=== PATIENT | female | born 1985 | race Caucasian/White ===

== ENCOUNTER 2025-05-02 22:11 | Emergency (ER) | payer OTHER, SELFPAY ==
--- NOTE | 2025-05-02 22:17 | ECG_ITS ---
Test Reason : OD Blood Pressure : */* mmHG Vent. Rate : 97 BPM Atrial Rate : 97 BPM P-R Int : 152 ms QRS Dur : 82 ms QT Int : 368 ms P-R-T Axes : 71 67 68 degrees QTcB Int : 467 ms Normal sinus rhythm Normal ECG No previous ECGs available Referred By: Karen Urrutia Electronically Signed By: NANCY GROSS
[2025-05-02] MEDS: diazePAM 10 MG/2 ML CARTRIDGE IVPUSH (22:30)
[2025-05-02] MEDS: Lactated Ringers 1,000 ML 999 ML IV (22:33)
[2025-05-02 22:34] VITALS: BP 127/80; PULSE 82; RESP 24; TEMP 35.9; O2SAT 97; BMI 24.4
[2025-05-02 22:57] LABS: MANUAL DIFF FLAG NO
[2025-05-02 22:58] LABS: Hematocrit 44.1 % (37.0-47.0); Hemoglobin 15.6 g/dl (12.0-16.0); Imm Gran Abs Auto 0.05 X10*3/uL (0.00-0.03); Imm Gran Pct Auto 0.5 % (0.0-0.4); Lymphocytes Absolute Auto 3.5 X10*3/uL (1.2-4.9); Mean Corpuscular HGB Conc 35.4 g/dl (31.0-35.0); Mean Corpuscular Hemoglobin 31.0 pg (27.0-33.0); Mean Corpuscular Volume 87.5 fL (80.0-98.0); NRBC Abs Auto 0.000 X10*3/uL (0.0-0.012); NRBC Pct Auto 0.0 /100WBC (0.0-0.2); Platelet Count 302 X10*3/uL (160-400); Red Blood Count 5.04 X10*6/uL (4.20-5.50); White Blood Count 11.1 X10*3/uL (4.8-10.8)
[2025-05-02 23:17] LABS: Acetaminophen LAB < 3 mcg/mL (<30); Salicylate < 5.0 mg/dL (15-30)
[2025-05-02 23:23] LABS: VBG HCO3 20 mmol/L (22-26); VBG O2 % Saturation 53.0 %
[2025-05-02 23:25] LABS: Venous Blood Gas Refer to POC result
[2025-05-02 23:28] LABS: Alanine Aminotransferase 27 U/L (0-31); Albumin Level 5.9 g/dL (3.5-5.0); Alkaline Phosphatase 48 U/L (39-117); Anion Gap 21 (12-20); Aspartate Amino Transferase 29 U/L (5-31); Blood Urea Nitrogen 17 mg/dL (9-16); Calcium 11.2 mg/dL (8.4-10.2); Carbon Dioxide 18 mmol/L (22-29); Chloride 103 mmol/L (96-108); Creatinine Clr Calc Pharmacy 80.6; Estimated Glomerular Filt Rate > 60; Potassium 3.2 mmol/L (3.3-5.1); Sodium 139 mmol/L (135-145); Total Protein 10.1 g/dL (6.5-8.0)
--- NOTE | 2025-05-03 00:25 | ED.OVERDOSE ---
HPI - Overdose General Chief Complaint: Overdose Stated Complaint: pain Time Seen by Provider: 05/02/25 22:15 Source: patient, family, RN notes reviewed and old records reviewed Mode of arrival: wheelchair Limitations: altered mental status History of Present Illness ED Provider: Dr. Karen Urrutia HPI Narrative: 39-year-old female with unclear past medical history presenting with apparent opioid overdose. Patient was in the parking lot in her own private vehicle and eventually was brought into the hospital. Reportedly overdosed on something and was given 4 doses of intranasal Narcan by a family member. She has explosive diarrhea and is unable to answer any questions at this time. No further information is able to be obtained at this time. Related Data Allergies Allergy/AdvReac Type Severity Reaction Status Date / Time Unable to Assess Allergy Verified 05/02/25 22:39 Review of Systems Review of Systems: Yes Unobtainable due to mental status PMFSH Social History Social History Advance Directives: No Advance Directives Information Provided: No Physical Exam Exam: Exam: GENERAL: Agitated, uncontrolled movements, writhing around on the stretcher, moaning in discomfort, responding to painful stimuli. SKIN: Normal skin color for ethnicity, diaphoretic, intact. HEENT: Normocephalic, atraumatic, no stridor, posterior oropharynx nonerythematous, poor [place] dentition, moist mucous membranes, EOMI. NECK: Soft, supple, full ROM, midline structures nontender, no step-offs, no deformities, no lymphadenopathy. CHEST: Heart regular tachycardia, no murmurs, symmetric chest rise and fall, no crepitus. PULMONARY: Clear to auscultation bilaterally, tachypneic, frequently sneezes, no wheezes/rhales/rhonchi. ABDOMINAL: Soft, nondistended, diffusely tender to palpation with voluntary guarding, hyperactive sounds in all quadrants. : Deferred. MUSCULOSKELETAL: Normal tone, full range of motion, no deformities, no peripheral edema. NEURO: Agitated, equal strength in upper and lower extremities, responds to painful stimuli, mumbles incomprehensible speech, no focal neurologic deficits. PSYCHIATRIC: Agitated, garbled speech, poor eye contact and psychomotor agitation. Vital Signs: Vital Signs: Last Vital Signs Temp 98.6 F 05/03/25 10:00 Pulse 50 05/03/25 10:00 Resp 16 05/03/25 10:00 BP 127/85 05/03/25 10:00 Pulse Ox 100 05/03/25 10:00 O2 Del Method Room Air 05/03/25 10:00 BMI result Body Mass Index 24.4 Course Course Course Narrative: 1:32 AM 05/03/2025 (Dr. Karen Urrutia, D.O.) Time: 07:32 Date: 05/03/25 Provider: Karen Urrutia, DO Patient in physician observation for psychiatric evaluation.? No acute events reported overnight. No current complaints. VS stable.? Patient is pending CARE team evaluation. Will continue to monitor. Reevaluation(s) Reevaluation #1: 7:01 AM 05/03/2025 (Dr. Murphy Brandon): Awaiting for the addiction team evaluation. recieved multiple medications after having withdrawals due to has been administering naloxone in the vehicle at a parking lot. Time: 07:01 Reevaluation #2: 1:40 PM 05/03/2025 (Dr. Murphy Brandon): I spoke to patient along with organ recovery coordinator, she states that her methadone dose is too high and every time she takes it she goes out', she goes to be [facility] in [place], she is not interested in to switching over to Suboxone, not interested in recovery, denies any other drug use, with that said she is alert oriented otherwise asymptomatic we will be discharging. Medications Administered Discontinued Medications Generic Name Dose Route Start Last Admin Trade Name Alexandru PRN Reason Stop Dose Admin Buprenorphine HCl 8 mg 05/03/25 00:19 05/03/25 01:42 Buprenorphine Hcl 8 Mg Tab.Subl SUBLINGUAL 05/03/25 00:20 8 mg ONCE ONE Administration Diazepam 10 mg 05/02/25 22:17 05/02/25 22:30 Diazepam 10 Mg/2 Ml Cartridge IVPUSH 05/02/25 22:18 10 mg STAT STA Administration Haloperidol Lactate 5 mg 05/03/25 00:19 05/03/25 00:26 Haloperidol Lactate 5 Mg/Ml Vial IVPUSH 05/03/25 00:20 5 mg ONCE ONE Administration Lactated Ringer's 1,000 mls @ 999 mls/hr 05/02/25 22:17 05/03/25 00:45 Lr IV 05/02/25 23:17 Infused .Q1H1M ONE Infusion Ketamine HCl 60 mg 05/02/25 23:45 05/03/25 01:34 Ketamine Hcl/Ns 50 Mg/5 Ml Syringe IVPUSH 05/02/25 23:46 Not Given ONCE ONE Ondansetron HCl 4 mg 05/02/25 22:17 05/02/25 22:30 Ondansetron Hcl 4 Mg/2 Ml Vial IVPUSH 05/02/25 22:18 4 mg ONCE ONE Administration Medical Decision Making Medical Decision Making [facility] Narrative: Patient presents today with a chief complaint of altered mental status, possible overdose. Differential diagnosis for AMS is incredibly broad and includes infection, intracranial process such as hemorrhage, stroke or mass, electrolyte abnormality, hypercarbia, hypoxia, toxic encephalopathy, among many others. Broad-based workup was initiated to further evaluate the etiology of patient's symptoms based on the above exam and history. She has no signs of head trauma and reportedly overdosed prior to arrival. Clinical picture is consistent with acute opioid withdrawal. 12:27 AM 05/03/2025 (Dr. Karen Urrutia, D.O.) I spoke with the patient's spouse who tells me that she has a history of opioid use disorder and is maintained on methadone. He thought that she had been relatively well maintained on methadone and was not using other substances until today when they ?stopped at a friend's house and she came out acting off?. Ultimately he thought that she had overdosed on some kind of opiate and ended up giving her several doses of Narcan when she ?started to doze off?. At 1 point he reports that she stated ?give me another dose of Narcan?. Ultimately he gave her 4 doses. He reports that she then had explosive diarrhea in their truck. Became extremely agitated and altered. Unable to hold still. He brought her to the emergency department at that point. Admits that she had been feeling well prior to all of this. They have been out today driving around with their daughter who is also in the family room now. He denies other illicit substance use or alcohol use today. She has a remote history of overdose and that is why he carries around Narcan. Says that it has been several years since she overdose. 1:21 AM 05/03/2025 (Dr. Karen Urrutia, D.O.) patient now actively vomiting, requiring further sedation. Plan for Haldol, Suboxone 8 mg. I did order ketamine but it was not given right away. Now that she is vomiting, I will have them hold off and we will use antipsychotics instead. 7:25 AM 05/03/2025 (Dr. Karen Urrutia, D.O.) patient continues to rest comfortably, no further emesis. Now heart rate and blood pressure significantly improving. Awaiting urinalysis and urine tox screen. She will need a recovery team consult after this. I think she could benefit from buprenorphine/naloxone treatment. Signing out to oncoming provider pending recovery team consult and final disposition. Differential Diagnosis Differential Diagnoses: The differential diagnosis associated with the presentation includes (As above) Admission/Observation Consideration of admission/observation: Escalation of care including admission/observation considered Consult Healthcare Provider Management of the patient was discussed with: Behavioral Health Provider (Recovery team) Lab Data MDM Lab Attestation statement: I reviewed the patient's lab results. 05/02/25 22:42 05/02/25 22:42 Labs: Lab Results 05/02/25 05/02/25 Range/Units 22:42 23:19 WBC 11.1 H (4.8-10.8) X10*3/uL RBC 5.04 (4.20-5.50) X10*6/uL Hgb 15.6 (12.0-16.0) g/dl Hct 44.1 (37.0-47.0) % MCV 87.5 (80.0-98.0) fL MCH 31.0 (27.0-33.0) pg MCHC 35.4 H (31.0-35.0) g/dl RDW 12.6 (11.0-16.0) % Plt Count 302 (160-400) X10*3/uL MPV 11.9 (9.4-12.3) fL Immature Gran % (Auto) 0.5 H (0.0-0.4) % Neut % (Auto) 53.7 (45-73) % Lymph % (Auto) 31.8 (20-40) % Dixie % (Auto) 10.4 (2-11) % Eos % (Auto) 3.1 (0-4) % Baso % (Auto) 0.5 (0-2) % Lymph # (Auto) 3.5 (1.2-4.9) X10*3/uL Dixie # (Auto) 1.2 (0.1-1.2) X10*3/uL Eos # (Auto) 0.3 (0.0-0.4) X10*3/uL Baso # (Auto) 0.1 (0.0-0.2) X10*3/uL Abs Immat Gran (auto) 0.05 H (0.00-0.03) X10*3/uL Absolute Neuts (auto) 6.0 (2.0-8.3) x10*3/uL Absolute Nucleated RBC 0.000 (0.0-0.012) X10*3/uL Nucleated RBC % (auto) 0.0 (0.0-0.2) /100WBC VBG pH 7.53 H (7.32-7.43) VBG pCO2 24 mmHg VBG pO2 33 mmHg VBG HCO3 20 L (22-26) mmol/L VBG O2 Saturation 53.0 % VBG Base Excess 0.2 mmol/L Sodium 139 (135-145) mmol/L Potassium 3.2 L (3.3-5.1) mmol/L Chloride 103 (96-108) mmol/L Carbon Dioxide 18 L (22-29) mmol/L Anion Gap 21 H (12-20) BUN 17 H (9-16) mg/dL Creatinine 0.76 (0.5-1.4) mg/dL Estim Creat Clear Calc 80.6 Estimated GFR > 60 Random Glucose 115 (60-115) mg/dL Calcium 11.2 H (8.4-10.2) mg/dL Total Bilirubin 0.5 (0.0-1.0) mg/dL AST 29 (5-31) U/L ALT 27 (0-31) U/L Alkaline Phosphatase 48 (39-117) U/L Total Protein 10.1 H (6.5-8.0) g/dL Albumin 5.9 H (3.5-5.0) g/dL Beta HCG, Quant < 2 mIU/mL Salicylates < 5.0 L (15-30) mg/dL Acetaminophen < 3 (<30) mcg/mL Ethyl Alcohol < 10 mg/dL Independent Interpretation I performed an independent interpretation of an: EKG Interpretation: My independent interpretation of the ECG reveals normal sinus rhythm with rate of 97, normal axis, normal intervals, no ST elevations or depressions to suggest ischemic changes, no previous for comparison. Independent Historian Clinical information obtained from an independent historian. History obtained from or confirmed by: Spouse Prescription Management I considered prescription management with: Other (Suboxone) Chronic Conditions Patient?s care impacted by: Other (Opioid use disorder) Social Determinants Patient?s care significantly limited by Social Determinants of Health including: Alcoholism and drug addiction in family and Problems related to primary support group Critical Care Time Critical Care Time Critical Care Time: Yes Total Critical Care Time: 45 Attestation: CRITICAL CARE TIME: 45 minutes of critical care time was spent in direct patient care at the bedside or in the immediate area with this patient. Critical care was necessary to treat or prevent imminent or life-threatening deterioration of the following conditions acute encephalopathy due to acute opioid withdrawal. This patient is high risk for decompensation and/or . This time was spent assessing and managing the patient, interpreting labs and imaging, coordinating care with other medical providers, gathering history from either the patient, their representatives, EMS or chart review, and discussing management with recovery team. Discharge Plan Discharge Clinical Impression: Acute encephalopathy, Accidental heroin overdose, Opiate withdrawal Patient Disposition: Home, Self-Care Additional Instructions: Opiate use disorder You were seen in our Emergency Department today for treatment of opiate use disorder. You may have been dosed with medication for opiate use disorder (MOUD) in the form of suboxone or methadone. You may experience feeling some withdrawal symptoms and this is normal. The? dose in the Emergency Department is a starting dose and meant to be titrated up once you follow up with a clinic. Please do not feel discouraged, it is a process. The nurse has reviewed with you where to follow up and what information to bring with you, to continue treatment. You also may have been given naloxone (narcan) to take home with you. This medication is used to potentially treat opiate overdose. If you decide you want to stop or cut down on how much you?re using, you can call or walk into our outpatient Addiction Treatment office: [facility] (M-F 9am-5p) [address] [place] [address], [address] [phone] You may have been provided with safer injection?items, please take time to take care of YOU and your health. Use new supplies whenever possible to lessen the chances of infections and other illnesses.? ?If you need more supplies, please go [facility],? [address], [place] you can call or text to coordinate delivery of safer supplies. You were also provided a list of several treatment providers in the area.? If you experience any worsening symptoms you cannot control please return to the ED or call 911. Please follow up at your next appointment. Things to look out for are fevers, chest pain, shortness of breath, severe pain, dizziness, fainting or any other concerns. Print Language: Syriac
--- OUTSIDE RECORDS SUMMARY | 2025-05-03 00:30 | XMS_ITS | Clinical Summary ---
Author Organization [facility] Address [address] [place] [phone] Phone Care Team Providers Care Store Shopper Name Role Phone Physician, Pcp Unknown Primary Care Provider Suni vailable Allergies No known active allergies Social History Tobacco Use Types Packs/Day Years Used Date Smoking Tobacco: Never Assessed Comments Unknown Sex and Gender Information Value Date Recorded Sex Assigned at Not on file Legal Sex Female 10:47 PM EST Gender Identity Not on file Sexual Orientation Not on file Obstetrics History Last Filed Vital Signs Vital Sign Reading Time Taken Comments Blood Pressure 123/69 12/04/2024 9:31 AM EDT Pulse 70 12/04/2024 9:31 AM EDT Temperature 36.3 C (97.3 F) 12/04/2024 9:31 AM EDT Respiratory Rate 16 12/04/2024 9:31 AM EDT Oxygen Saturation 97% 12/04/2024 9:31 AM EDT Inhaled Oxygen Concentration - - Weight 63.5 kg (140 lb) 12/04/2024 9:31 AM EDT Height 152.4 cm (5') 12/04/2024 9:31 AM EDT Body Mass Index 27.34 12/04/2024 9:31 AM EDT Plan of Treatment Health Maintenance Due Date Last Done Comments Breast Cancer Screening 1983 Hepatitis A Vaccines (1 of 2 - Risk 2-dose series) 2002 Hepatitis B Vaccines (1 of 3 - 19+ 3-dose series) 2002 Cervical Cancer Screening: P ap Smear 2004 DTaP,Tdap,and Td Vaccines (2 - Td or Tdap) 10/16/2021 10/16/2011 Depression Screening 08/19/2024 HIV Screening 12/04/2024 Hepatitis C Screening 12/04/2024 Social Influencers of Health Screening 12/04/2024 COVID-19 Vaccine (1 - 2023-2 5 season) 2025 Influenza Vaccine (#1) 2025 6, 08/23/2014, 05/30/2011 HIB Vaccines Aged Out No longer eligi ble based on patient's age to complete this topic HPV Vaccines Aged Out No longer eligi ble based on patient's age to complete this topic IPV Vaccines Aged Out No longer eligi ble based on patient's age to complete this topic MMR Vaccines Aged Out No longer eligi ble based on patient's age to complete this topic Meningococcal ACWY Vaccine Aged Out N o longer eligible based on patient's age to complete this topic Meningococcal B Vaccine Aged Out No l onger eligible based on patient's age to complete this topic Pneumococcal Vaccine: Pediatrics (0 to 5 Years) and At-Risk Patients (6 to 49 Years) Aged Out No longer eligible b ased on patient's age to complete this topic RSV Immunization Patients Under 20 months Aged Out No longer eligible b ased on patient's age to complete this topic Varicella Vaccines Aged Out No longer eligible based on patient's age to complete this topic Insurance [facility] [facility] Care Teams Store Shopper Relationship Specialty Start Date End Date Physician, Pcp Unknown PCP - General 12/04/24
[2025-05-03 06:04] VITALS: BP 103/77; PULSE 105; RESP 16; TEMP 36.7; O2SAT 99
[2025-05-03 08:25] VITALS: BP 109/69; PULSE 85; RESP 18; O2SAT 97
[2025-05-03 10:00] VITALS: BP 127/85; PULSE 50; RESP 16; TEMP 37; O2SAT 100
--- NOTE | 2025-05-03 11:16 | PC.NURSE ---
Pt is awake intermittently. Family and daughter to bedside. Updated on plan awaiting for recovery team. VSS
--- NOTE | 2025-05-03 13:20 | MHC.CARE ---
Met with pt, she was difficult to arouse from her slumber.? Two attempts made, pt awoke briefly on the second attempt.? She participates minimally and appeared to have a great deal of difficulty staying alert and awake. She did report her would return later, he has no phone.? It appears that pt and her live in their vehicle, and there is an 8-year-old child that was with them.? It is unclear if the child lives with them.? The child is her ?s child. Pt reported that she overdosed on methadone as her dose is far too high.? Pt did not remember anything that had occurred.? She reports taking her methadone and later, waking up in the ED. Pt has not submitted urine for a drug screen.
--- NOTE | 2025-05-03 13:43 | MHC.CARE ---
Met with pt again, she has refused resources and referrals. States the overdose was on methadone, a double dose, unintentional. ED Provider will be discharging.
[2025-05-03 13:56] VITALS: BP 131/86; PULSE 85; RESP 18; O2SAT 98
[2025-05-03] MEDS: Naloxone HCl Nasal TAKE HOME 4 MG SPRAY 8 MG NOSTRILALT (13:56)
[2025-05-03 14:06] VITALS: BP 131/86; PULSE 85; RESP 18; TEMP -17.7; TEMP 0; O2SAT 98
== END 2025-05-03 14:06 | disposition home or self-care (01) ==
PROVIDERS: Emergency Provider Emergency Medicine
DX: G93.40 Encephalopathy, unspecified (principal); F11.23 Opioid dependence with withdrawal; R19.7 Diarrhea, unspecified; R10.2 Pelvic and perineal pain; R41.82 Altered mental status, unspecified; Z79.899 Other long term (current) drug therapy; Z51.81 Encounter for therapeutic drug level monitoring
CPT/HCPCS: 36415; 80053; 80143; 80179; 80307; 82803; 84702; 85025; 93005; 96361; 96374; 96375; 99285; J0571; J1630; J2405; J3360; J7120

== ENCOUNTER → 2025-05-02 22:17 | Outpatient (BNV) | payer OTHER, SELFPAY | PROVIDERS: Emergency Provider Emergency Medicine; Visit Provider Internal Medicine | DX: R41.82 Altered mental status, unspecified (principal) | CPT/HCPCS: 93010 ==